=== PATIENT | male | born 1995 ===

== ENCOUNTER → 2019-10-15 09:32 | Outpatient (CLI) | payer OTHER | END | disposition home or self-care (01) | LOC: LAB 09:32 | PROVIDERS: ATTEND General Practice | DX: J11.1 Influenza due to unidentified influenza virus with other respiratory manifestations (principal); Z20.828 Contact with and (suspected) exposure to other viral communicable diseases; R07.0 Pain in throat; Z11.59 Encounter for screening for other viral diseases ==